=== PATIENT | female | born 1940 | race American Indian/Alaskan Native ===

== ENCOUNTER 2016-12-11 09:26 | Day surgery (SDC) | payer MEDICARE, MEDICAID ==
[2016-12-11] MEDS ORDERED: NACL 0.9% 1000 ML 1,000 ML IV SCH (10:00)
[2016-12-11] MEDS ORDERED: DIPRIVAN 10 MG/ML IV ONE (10:04)
--- NOTE | 2016-12-11 10:15 | Anesthesia Day of Surgery ---
Anesthesia Day of Surgery - Day of Surgery Patient Examined: Yes Patient H&P Reviewed: Yes Patient is NPO: Yes
--- NOTE | 2016-12-11 10:15 | Anesthesia Consultation ---
Anesthesia Consult and Med Hx Date of service: 12/11/16 - Airway Anesthetic Teeth Evaluation: Dentures ROM Head & Neck: Adequate Mental/Hyoid Distance: Adequate Mallampati Class: Class II Intubation Access Assessment: Probably Good - Pulmonary Exam CTA: Yes - Cardiac Exam Cardiac Exam: RRR - Pre-Operative Health Status ASA Pre-Surgery Classification: ASA3 Proposed Anesthetic Plan: MAC - Pulmonary Hx Smoking: Yes (prior) Hx Asthma: Yes Home Oxygen Therapy: Yes (PRN) - Cardiovascular System Hx Hypertension: Yes - Central Nervous System Hx Psychiatric Problems: No - Gastrointestinal Hx Gastroesophageal Reflux Disease: Yes - Endocrine Hx Renal Disease: No Hx Insulin Dependent Diabetes: No - Hematic Hx Anemia: No Hx Sickle Cell Disease: No - Other Systems Hx Alcohol Use: No Hx Substance Use: No Hx Cancer: No Hx Obesity: No
--- NOTE | 2016-12-11 10:24 | Short Stay Summary ---
Short Stay Documentation Date of service: 12/11/16 Narrative H&P: 76 year old presents for colonoscopy for recent hematochezia and family history of colon cancer in a first degree relative. Recent FOBT was reportedly positive. Previous colonoscopy showed diverticulosis. - History Principal diagnosis: hemtchezia, family hx colon cancer H&P: obtained from office (Per patient, no changes since 08/2016 office visit; please refer to that note by Dr. Huang, which has been reviewed today) - Allergies and Medications Current Medications: Allergies No Known Allergies Allergy (Verified 12/11/16 09:53) Active Medications Sodium Chloride (Nacl 0.9% 1000 Ml) 1,000 mls @ 50 mls/hr IV DIRECT ABRAHAM - Physical exam General appearance: no acute distress, well-nourished (thin) HEENT: Atraumatic Lungs: Clear to auscultation Heart: Regular rate, Normal S1 Gastrointestinal: normal Neurological: Normal speech - Hospital course Hospital course: Uneventful colonoscopy. See report. - Disposition Condition at discharge: Good Disposition: DISCHARGED TO HOME OR SELFCARE - Discharge Diagnoses (1) Hematochezia Status: Acute (2) Family history of colon cancer in mother Status: Acute (3) Diverticulosis of colon Status: Acute Qualifiers: Diverticulosis bleeding: D (4) Internal hemorrhoids Status: Acute Short Stay Discharge Plan Activity: other (no driving today) Diet: other (may resume usual diet) Additional Instructions: Repeat colonoscopy in 5 years in view of family history, if patient remains in good health. However at her age this will be optional. Follow up with: LEIGHTON RODGERS MD [Primary Care Provider] - 7 Days
--- NOTE | 2016-12-11 10:57 | Operative Report ---
Operative Report Operative Report: Date of procedure: 12/11/2016 Preprocedure diagnosis: History of hematochezia by report, reportedly confirmed with subsequent positive FOBT, family history colon cancer in a first-degree relative (her mother) Post procedure diagnosis: Diverticulosis and internal hemorrhoids Procedure name(s): Colonoscopy Surgeon: Yonny Branch MD Anesthesia: Monitored anesthesia care EBL: None Procedure: The indications, techniques, potential complications and alternatives , had been discussed in full detail prior to the date of the exam, and once again on the day of the exam. Questions were encouraged and answered, and consent was thereby obtained. The patient was placed in the left lateral decubitus position, and was medicated by anesthesia services. See the anesthesia records for details. The anal sphincter was digitally dilated. The digital exam was unremarkable. The tip of a [employer] pediatric video colonoscope was inserted through the anal sphincter and into the rectal vault. It was then advanced proximally under continuous visualization of the lumen through a moderately tortuous left colon but successfully to the cecum without difficulty. Abdominal compression was employed to minimize loop formation and facilitate instrument advancement. The prep was good and landmarks were easily identified. A diverticulum was noted in the cecum. The appendiceal orifice and ileocecal valve appeared normal. From the cecum, the instrument was slowly withdrawn with careful circumferential examination of the colonic mucosa. Mild to moderate diverticulosis was noted in the ascending colon, hepatic flexure and proximal transverse colon. The remainder the proximal transverse colon appeared normal, as did the splenic flexure. Diverticula were noted in the descending and sigmoid colon. No polyps or bleeding stigmata were seen at any point. The rectum appeared normal from the forward view. The rectum was very small capacity, precluding retroflexion. The distal rectum was carefully visualized from the forward view. Nonbleeding internal hemorrhoids were noted. The instrument was fully withdrawn. The procedure was very well tolerated. Postprocedure she was monitored in the recovery area of the GI lab to ensure stability prior to her release. See the outpatient record for details regarding instructions to patient, medications and plans for follow-up. Final diagnosis: 1. Diverticulosis coli 2. Internal hemorrhoids Colon screening information: Previous colonoscopy 7 years ago reportedly showed diverticulosis. Next screening colonoscopy in 5 years will be(s) her age but should be considered if she remains in good health, in view of her family history. Yonny Branch M.D. Dictated 12/11/2016 at 10:54 AM
--- NOTE | 2016-12-11 11:11 | Post Anesthesia Evaluation ---
- Post Anesthesia Evaluation Patient Participated: No Airway Patent: Yes Stable Respiratory Function: Yes Nausea/Vomiting: No Temp > 96.8F: Yes Pain Manageable: Yes Adequeate Hydration: Yes Anesthesia Complications: No Block Receding Appropriately: Not Applicable Patient on Ventilator: No
[2016-12-11 11:21] VITALS: BP 107/66
== END 2016-12-11 09:27 | disposition home or self-care (01) ==
LOC: GIO 09:26
PROVIDERS: ATTEND Internal Medicine Gastroenterology
DX: K57.30 Diverticulosis of large intestine without perforation or abscess without bleeding (principal); K64.8 Other hemorrhoids; K63.89 Other specified diseases of intestine; D64.9 Anemia, unspecified; J45.909 Unspecified asthma, uncomplicated; J44.9 Chronic obstructive pulmonary disease, unspecified; K21.9 Gastro-esophageal reflux disease without esophagitis; I10 Essential (primary) hypertension; Z98.51 Tubal ligation status; Z98.890 Other specified postprocedural states; Z87.891 Personal history of nicotine dependence; Z80.0 Family history of malignant neoplasm of digestive organs; Z82.49 Family history of ischemic heart disease and other diseases of the circulatory system; Z80.1 Family history of malignant neoplasm of trachea, bronchus and lung; Z80.42 Family history of malignant neoplasm of prostate
CPT/HCPCS: 45378; J2704